=== PATIENT | female | born 1980 | race African-American/Black ===

== ENCOUNTER 2023-03-17 16:27 | Inpatient (IN) | payer MEDICARE, MEDICAID, SELFPAY ==
--- NOTE | ~2023-03-17 | CT_ITS ---
EXAMINATION: CT head/brain wo IV con INDICATION INFORMATION: Reason for Exam altered mental status COMPARISON: None TECHNIQUE: Contiguous axial imaging was performed from the skull base to vertex without intravenous contrast. Sagittal and coronal reformatted images were obtained. This CT examination was performed using dose optimization techniques as appropriate, variously including the following: * Automated exposure control * Adjustment of mA and/or kV according to patient size (this includes techniques or standardized protocols for targeted exams where dose is matched to indication/reason for exam; i.e. extremities or head) Use of iterative reconstruction technique DLP: 527.79 mGy-cm FINDINGS: No acute osseous abnormality. Mild right frontal scalp soft tissue swelling. The mastoid air cells and visualized portions of the paranasal sinuses are well aerated. There is no evidence of acute intracranial hemorrhage or territorial infarction. No abnormal mass effect or midline shift is seen. Holcomb to white matter differentiation is well preserved. No extra-axial fluid collections are identified. No hydrocephalus. No significant volume loss. There is no abnormal attenuation within the brain parenchyma. CT/CT head/brain wo IV con IMPRESSION: No acute intracranial abnormality including hemorrhage, mass effect, hydrocephalus, or acute territorial edematous infarction.
[2023-03-17 16:52] VITALS: BP 134/80; PULSE 100; RESP 16; TEMP 36.8; O2SAT 94
[2023-03-17 17:56] VITALS: BMI 45.8
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
[2023-03-17] MEDS: Nicotine Polacrilex Lozenge 2 MG LOZENGE BUCCAL (21:41)
[2023-03-18 07:14] LABS: Alanine Aminotransferase 75 U/L (0-31); Alkaline Phosphatase 81 U/L (39-117); Anion Gap 11 (12-20); Aspartate Amino Transferase 87 U/L (5-31); Bilirubin Total 0.6 mg/dL (0.0-1.0); Blood Urea Nitrogen 8 mg/dL (9-16); Calcium 9.2 mg/dL (8.4-10.2); Carbon Dioxide 27 mmol/L (22-29); Chloride 102 mmol/L (96-108); Cholesterol 152 mg/dL; Creatinine Clr Calc Pharmacy 136.6; Estimated Glomerular Filt Rate > 60; Glucose Fasting 87 mg/dL (60-99); HDL Cholesterol 50 mg/dL; LDL Cholesterol Calculated 95 mg/dl; Potassium 4.2 mmol/L (3.3-5.1); Sodium 136 mmol/L (135-145); Total Protein 6.2 g/dL (6.5-8.0); Triglycerides 35 mg/dL
[2023-03-18 08:07] VITALS: BP 112/70; PULSE 115; RESP 18; TEMP 36.8; O2SAT 100
[2023-03-18] MEDS: Nicotine 7 MG PATCH.TD24 TRANSDERMA (09:00)
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
[2023-03-18 15:29] LABS: Appearance Urine Cloudy; Color Urine Yellow; Glucose Urine UA Negative (Negative); Leukocyte Esterase Urine Moderate (2+) (Negative); Nitrite Urine Positive (Negative); PH 6.5 (5.0-9.0); UMIC TRIGGER UA YES; Urine Blood Large (3+) (Negative); Urine Ketones Trace mg/dL (Negative); Urine Protein 100 (2+) mg/dL (Neg-Trace)
[2023-03-18 15:34] LABS: Bacteria Urine 2+ (None Seen); Hyaline Casts Urine 0-2 /LPF (0-2); RBC Urine >20 /HPF (0-2); WBC Urine >50 /HPF (0-5)
[2023-03-18 15:59] LABS: Amphetamine Screen Urine Not Detected (Not Detect); Barbiturates, Urine Not Detected (Not Detect); Benzodiazepines Screen Urine Not Detected (Not Detect); Cannabinoid Screen Urine Not Detected (Not Detect); Cocaine Screen Urine Not Detected (Not Detect); Fentanyl, urine Not Detected (Not Detect); Opiate Screen Urine Not Detected (Not Detect); Phencyclidine Screen Urine Not Detected (Not Detect)
[2023-03-18] MEDS: traZODone HCL 50 MG TABLET PO (21:09)
[2023-03-18 21:18] VITALS: BP 106/72; PULSE 103; TEMP 36.8; O2SAT 100
[2023-03-19 08:23] VITALS: BP 112/67; PULSE 93; RESP 18; TEMP 36.3; O2SAT 100
[2023-03-19] MEDS: Nicotine 7 MG PATCH.TD24 TRANSDERMA (08:24)
[2023-03-19] MEDS: Multivitamin TABLET 1 TAB PO (08:24)
--- NOTE | 2023-03-19 10:51 | P.PNPSI_ITS ---
Subjective Subjective Date of Service: 03/19/23 Reason For Visit: F33.33 F41.1 F23 Subjective Notes: Conditional Voluntary Interim History: The nursing staff reported the patient had been compliant with treatment, she had all her meals and slept fairly well at night needed p.r.n. for sleep. On interview I explained her that her CT scan came back normal, her UA probably she would have a UTI and a culture is pending. She still on antibiotics. We discussed the possibility that her brief psychotic break was due to an infection but we will follow. Mental Status Exam Mental Status Exam Patient Appearance: Well Grooomed and Appropriate Patient Orientation: Person and Situation Level of Consciousness: Awake and Appropriate Patient Behavior: Guarded and Passive Mood Description: Calm Affect Description: Constricted Patient Cognition Impaired: Yes Ability to Follow Directions: Good Speech Pattern: Clear Hallucinations: None Delusions: Not Present Thought Process: Distracted and Evasive Thought Content: positive for [place] and positive for Circumstantial Judgement: Fair Diagnostics Vital Signs (24Hr): Vital Signs - 24 hr 03/18/23 21:18 03/19/23 08:23 Temperature 98.3 F 97.3 F Pulse Rate 103 H 93 Respiratory Rate 18 Blood Pressure 106/72 112/67 Pulse Oximetry 100 100 Oxygen Delivery Method Room Air Room Air BMI result Body Mass Index 45.8 Labs 03/18/23 06:37 Labs: Laboratory Results - last 48 hr 03/18/23 03/18/23 03/18/23 06:37 15:08 15:09 Sodium 136 Potassium 4.2 Chloride 102 Carbon Dioxide 27 Anion Gap 11 L BUN 8 L Creatinine 0.72 Estim Creat Clear Calc 136.6 Estimated GFR > 60 Fasting Glucose 87 Calcium 9.2 Total Bilirubin 0.6 AST 87 H ALT 75 H Alkaline Phosphatase 81 Total Protein 6.2 L Albumin 4.0 Triglycerides 35 Cholesterol 152 LDL Cholesterol, Calc 95 HDL Cholesterol 50 Urine Color Yellow Urine Appearance Cloudy Urine pH 6.5 Ur Specific Bee 1.020 Urine Protein 100 (2+) H Urine Glucose (UA) Negative Urine Ketones Trace Urine Blood Large (3+) H Urine Nitrite Positive H Ur Leukocyte Esterase Moderate (2+) H Urine RBC >20 H Urine WBC >50 H Ur Squamous Epith Cells 3-5 Urine Bacteria 2+ Hyaline Casts 0-2 Urine Opiates Screen Not Detected Urine Fentanyl Screen Not Detected Ur Barbiturates Screen Not Detected Ur Phencyclidine Scrn Not Detected Ur Amphetamines Screen Not Detected U Benzodiazepines Scrn Not Detected Urine Cocaine Screen Not Detected U Marijuana (THC) Screen Not Detected Imaging Radiology Impressions: ITS Impressions Head CT 03/18/23 14:04 IMPRESSION: No acute intracranial abnormality including hemorrhage, mass effect, hydrocephalus, or acute territorial edematous infarction. Medications Medications Current Medications Acetaminophen (Acetaminophen 325 Mg Tablet) 650 mg PO Q6H PRN PRN Reason: Headache/Pain Mild Scale (1-3) Al Hydroxide/Mg Hydroxide (Magnesium Hydrox/Alum Hydrox 30 Ml Oral.Susp) 30 ml PO Q6H PRN PRN Reason: Heartburn/Nausea Aripiprazole (Aripiprazole 2 Mg Tablet) 2 mg PO DAILY [facility] Last Admin: 03/19/23 08:30 Dose: Not Given Cefuroxime Axetil (Cefuroxime Axetil 250 Mg Tablet) 250 mg PO Q12H [facility] Last Admin: 03/19/23 08:24 Dose: 250 mg Escitalopram Oxalate (Escitalopram Oxalate 10 Mg Tablet) 10 mg PO DAILY [facility] Last Admin: 03/19/23 08:30 Dose: Not Given Hydroxyzine HCl (Hydroxyzine Hcl 25 Mg Tablet) 25 mg PO Q6H PRN PRN Reason: Anxiety Loratadine (Loratadine 10 Mg Tablet) 10 mg PO DAILY [facility] Last Admin: 03/19/23 08:30 Dose: Not Given Magnesium Hydroxide (Milk Of Magnesia 30 Ml Oral.Susp) 30 ml PO DAILY PRN PRN Reason: Constipation Multivitamins/Vitamin C (Multivitamin Tablet) 1 tab PO DAILY [facility] Last Admin: 03/19/23 08:24 Dose: 1 tab Nicotine (Nicotine 7 Mg Patch.Td24) 7 mg TRANSDERMA DAILY [facility] Last Admin: 03/19/23 08:24 Dose: 7 mg Nicotine Polacrilex (Nicotine Polacrilex Lozenge 2 Mg Lozenge) 2 mg BUCCAL Q2H PRN PRN Reason: smoking cravings Last Admin: 03/17/23 21:41 Dose: 2 mg Trazodone HCl (Trazodone Hcl 50 Mg Tablet) 50 mg PO BEDTIME MRX1 PRN PRN Reason: Insomnia Last Admin: 03/18/23 21:09 Dose: 50 mg Trazodone HCl (Trazodone Hcl 50 Mg Tablet) 50 mg PO BEDTIME PRN PRN Reason: insomnia Allergies Allergies Allergy/AdvReac Type Severity Reaction Status Date / Time No Known Allergies Allergy Verified 03/17/23 17:31 Assessment & Plan Assessment & Plan (1) Mood disorder: Status: Acute Code(s): F39 - Unspecified mood [affective] disorder Plan The patient is an adult female with a prior history of depression who was admitted into the hospital for psychotic episode that resolved spontaneously after 14-16 hours. Currently the patient adamantly sandy es psychotic symptoms, sell her reamed behavior, hallucinations or delusions. Plan 1. Gather collateral information. 2. CT scan head without contrast. NO new findings 3. Regular blood work with TSH basic metabolic panel liver function test ammonia level. results wnl. 4. Urinalysis and U tox. Positive to UTI 5. Continue with same medications and antibiotics. Reason for continued inpatient stay Substantial Risk for: inability to function, rapid decompensation and med/psych decompensation Time Spent With Patient Time: Total time managing care of this patient today __20__ minutes.
[2023-03-19] MEDS: traZODone HCL 50 MG TABLET PO (21:03)
[2023-03-19 21:06] VITALS: BP 117/61; PULSE 78; RESP 18; TEMP 36.7; O2SAT 100
[2023-03-20 08:00] VITALS: BP 122/76; PULSE 91; TEMP 36.4; O2SAT 97
[2023-03-20] MEDS: Multivitamin TABLET 1 TAB PO (08:54)
[2023-03-20] MEDS: Loratadine 10 MG TABLET PO (08:55)
[2023-03-20] MEDS: Nicotine 7 MG PATCH.TD24 TRANSDERMA (09:32)
--- NOTE | 2023-03-20 16:20 | P.PNPSI_ITS ---
Subjective Subjective Date of Service: 03/20/23 Reason For Visit: F33.33 F41.1 F23 Interim History: calm, cooperative. feeling better, would like to discharge as soon as possible. denies any safety concerns today. agree to DC tomorrow at 11. will plan to restart her home meds, which she is currently Rx'ed. the fact that her proper home meds are currently RX'ed to her here was discussed with her, and she expressed her intention to take them. per staff, 3-day up 03/22. brighter. UTI, getting antibx. refusing antidepressant and antipsychotic, wants to discuss with MD. refusing all meds aside from ativan. slept post MN. Mental Status Exam Mental Status Exam Narrative: adequately dressed and groomed. cooperative. slight PMR, perhaps. speech nml rate, amount. decr loudness. nml latency, flattened tone. thoughts linear and logical. affect constricted, hypo-intense, non-labile. mood i've been OK the last few days. denies SI/HI/AVH. Diagnostics Vital Signs (24Hr): Vital Signs - 24 hr 03/19/23 21:06 03/20/23 08:00 Temperature 98.1 F 97.6 F Pulse Rate 78 91 Respiratory Rate 18 Blood Pressure 117/61 122/76 Pulse Oximetry 100 97 Oxygen Delivery Method Room Air Room Air BMI result Body Mass Index 45.8 Labs 03/18/23 06:37 Imaging Radiology Impressions: ITS Impressions Head CT 03/18/23 14:04 IMPRESSION: No acute intracranial abnormality including hemorrhage, mass effect, hydrocephalus, or acute territorial edematous infarction. Medications Medications Current Medications Acetaminophen (Acetaminophen 325 Mg Tablet) 650 mg PO Q6H PRN PRN Reason: Headache/Pain Mild Scale (1-3) Al Hydroxide/Mg Hydroxide (Magnesium Hydrox/Alum Hydrox 30 Ml Oral.Susp) 30 ml PO Q6H PRN PRN Reason: Heartburn/Nausea Aripiprazole (Aripiprazole 2 Mg Tablet) 2 mg PO DAILY [facility] Last Admin: 03/20/23 09:51 Dose: Not Given Cefuroxime Axetil (Cefuroxime Axetil 250 Mg Tablet) 250 mg PO Q12H [facility] Stop: 03/23/23 20:59 Last Admin: 03/20/23 08:55 Dose: 250 mg Escitalopram Oxalate (Escitalopram Oxalate 10 Mg Tablet) 10 mg PO DAILY [facility] Last Admin: 03/20/23 08:56 Dose: Not Given Hydroxyzine HCl (Hydroxyzine Hcl 25 Mg Tablet) 25 mg PO Q6H PRN PRN Reason: Anxiety Loratadine (Loratadine 10 Mg Tablet) 10 mg PO DAILY [facility] Last Admin: 03/20/23 08:55 Dose: 10 mg Magnesium Hydroxide (Milk Of Magnesia 30 Ml Oral.Susp) 30 ml PO DAILY PRN PRN Reason: Constipation Multivitamins/Vitamin C (Multivitamin Tablet) 1 tab PO DAILY [facility] Last Admin: 03/20/23 08:54 Dose: 1 tab Nicotine (Nicotine 7 Mg Patch.Td24) 7 mg TRANSDERMA DAILY [facility] Last Admin: 03/20/23 09:32 Dose: 7 mg Nicotine Polacrilex (Nicotine Polacrilex Lozenge 2 Mg Lozenge) 2 mg BUCCAL Q2H PRN PRN Reason: smoking cravings Last Admin: 03/17/23 21:41 Dose: 2 mg Trazodone HCl (Trazodone Hcl 50 Mg Tablet) 50 mg PO BEDTIME MRX1 PRN PRN Reason: Insomnia Last Admin: 03/19/23 21:03 Dose: 50 mg Trazodone HCl (Trazodone Hcl 50 Mg Tablet) 50 mg PO BEDTIME PRN PRN Reason: insomnia Allergies Allergies Allergy/AdvReac Type Severity Reaction Status Date / Time No Known Allergies Allergy Verified 03/17/23 17:31 Assessment & Plan Assessment & Plan (1) Mood disorder: Status: Acute Code(s): F39 - Unspecified mood [affective] disorder Plan The patient is an adult female with a prior history of depression who was admitted into the hospital for psychotic episode that resolved spontaneously after 14-16 hours. Currently the patient adamantly denies psychotic symptoms, sell her reamed behavior, hallucinations or delusions. Plan 1. Gather collateral information. 2. CT scan head without contrast. NO new findings 3. Regular blood work with TSH basic metabolic panel liver function test ammonia level. results wnl. 4. Urinalysis and U tox. Positive to UTI 5. Continue with same medications and antibiotics. 03/20: continue current mgmt. plan to discharge tomorrow per pt preference. psychotic Sx resolved. Reason for continued inpatient stay Substantial Risk for: rapid decompensation Time Spent With Patient Time: Total time managing care of this patient today __25__ minutes.
[2023-03-20 18:00] VITALS: BP 108/74; PULSE 90; TEMP 36.6; O2SAT 100
[2023-03-20] MEDS: traZODone HCL 50 MG TABLET PO (21:01)
[2023-03-21 08:00] VITALS: BP 104/65; PULSE 78; RESP 18; TEMP 36.6; O2SAT 100
[2023-03-21] MEDS: Multivitamin TABLET 1 TAB PO (08:52)
[2023-03-21] MEDS: Loratadine 10 MG TABLET PO (08:53)
[2023-03-21] MEDS: Escitalopram Oxalate 10 MG TABLET PO (08:53)
[2023-03-21] MEDS: ARIPiprazole 2 MG TABLET PO (08:53)
[2023-03-21] MEDS: Nicotine 7 MG PATCH.TD24 TRANSDERMA (08:54)
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
--- NOTE | 2023-03-21 10:52 | PC.NURSE ---
1035 pt is ready and aware of discharge to home. She denies SI/HI/AH/VH .Instructions meds and appointments reviewed with Chirag. She verbalized understanding.
== END 2023-03-21 10:35 | disposition home or self-care (01) | DRG 885 ==
PROVIDERS: Psychiatry & Neurology Psychiatry; Admitting Provider Psychiatry & Neurology Psychiatry; Visit Provider Psychiatry & Neurology Psychiatry
DX: F29 Unspecified psychosis not due to a substance or known physiological condition (principal); J30.2 Other seasonal allergic rhinitis; F17.210 Nicotine dependence, cigarettes, uncomplicated; Z71.6 Tobacco abuse counseling; Z79.899 Other long term (current) drug therapy
CPT/HCPCS: 36415; 70450; 80053; 80061; 80307; 81001; 87086

== ENCOUNTER 2023-07-06 19:03 | Inpatient (IN) | payer MEDICARE, MEDICAID, SELFPAY ==
--- NOTE | ~2023-07-06 | CT_ITS ---
EXAMINATION: CT HEAD WITHOUT CONTRAST CLINICAL INFORMATION: Fall COMPARISON: Previous head CT February 2023 TECHNIQUE: Contiguous axial imaging was performed from the skull base to vertex without intravenous administration of contrast. This CT examination was performed using dose optimization techniques as appropriate, variously including the following: *Automated exposure control *Adjustment of mA and/or kV according to patient size (this includes techniques or standardized protocols for targeted exams where dose is matched to indication/reason for exam; i.e. extremities or head) *Use of iterative reconstruction technique DLP: 922 mGy-cm FINDINGS: There is no evidence of an axial collection. There is no evidence of intra-axial extra-axial hemorrhage. The ventricles and extra-axial CSF spaces are appropriate. Holcomb-white matter differentiation is normal. No mass, mass effect or infarct. No skull fracture. Visualized paranasal sinuses, mastoid air cells and middle ears are clear. CT/CT head/brain wo IV con IMPRESSION: Unremarkable exam.
[2023-07-06 19:30] VITALS: BP 136/87; PULSE 92; RESP 16; TEMP 36.4; O2SAT 96
[2023-07-06 20:17] VITALS: BMI 22.9
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
--- NOTE | 2023-07-07 00:35 | PC.NURSE ---
Patient was noted to have E.coli UTI and was started on an antibiotic at [facility] ED. Orders need to be written for additional antibiotic to continue treatment.
[2023-07-07 08:51] LABS: Estimated Average Glucose 97 mg/dL
[2023-07-07 08:54] LABS: Alanine Aminotransferase 20 U/L (0-31); Albumin Level 5.1 g/dL (3.5-5.0); Alkaline Phosphatase 98 U/L (39-117); Anion Gap 18 (12-20); Aspartate Amino Transferase 56 U/L (5-31); Bilirubin Total 1.1 mg/dL (0.0-1.0); Blood Urea Nitrogen 9 mg/dL (9-16); Calcium 10.4 mg/dL (8.4-10.2); Carbon Dioxide 22 mmol/L (22-29); Chloride 103 mmol/L (96-108); Cholesterol 201 mg/dL; Creatinine Clr Calc Pharmacy 63.1; Estimated Glomerular Filt Rate 53; Glucose Fasting 98 mg/dL (60-99); HDL Cholesterol 73 mg/dL; LDL Cholesterol Calculated 119 mg/dl; Potassium 3.5 mmol/L (3.3-5.1); Sodium 139 mmol/L (135-145); Total Protein 8.6 g/dL (6.5-8.0); Triglycerides 47 mg/dL
[2023-07-07 09:09] LABS: Thyroid Stimulating Hormone 2.01 uIU/mL (0.32-4.0)
[2023-07-07 09:19] LABS: Folate 8.5 ng/mL (> or = 4.0); Vitamin B12 786 pg/mL (200-900)
[2023-07-07 09:35] VITALS: BP 123/77; PULSE 112; RESP 18; TEMP 36.5; O2SAT 98
[2023-07-07] MEDS: hydrOXYzine HCL 25 MG TABLET PO (09:44)
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
--- NOTE | 2023-07-07 12:18 | P.HPPS_ITS ---
HPI Date of Service: 07/07/23 Chief Complaint: Psychotic Sources of Information: patient interviewed, chart reviewed and crisis/core team assessment reviewed Additional Sources of Information: Father, Adalberto. Pt is a heavy binge drinker, [employer]. HPI Subjective Notes: [place] Warning and Conditional Voluntary Healthcare Proxy: No Guardianship: No Medical Problems Affecting Mental Status: No Narrative: 42 yo female, hx of bipolar depression, anxiety, alcohol use- in withdrawal on arrival, presents to [facility] ER for reported hallucinations and feeling unsafe at home. Pt asked to be taken from her home to her friends home. She reportedly heard voices in her driveway of people attempting to harm her. [facility] reports a similiar presentation January 2023. [facility] found a mild anemia, alcohol withdrawal requiring Ativan, AST elevation, UTI (Macrobid started 100 mg bid x 5 days), visual hallucinations. Given Olanzapine. Pt developed visual and olfactory hallucinations in the ER. Today, pt appears to respond to internal stimuli. She is moving her hands as if she is spinning yarn. She is a vague historian. She affirms the above, stating she did not want to come to hospital. ?Hallucinosis Past Psychiatric History: The patient had outpatient services in the past never admitted into the hospital before IP: None known. Hx of this presentation of sx earlier this year at [facility] OP: Not known Meds: Abilify, Lexapro, Trazodone Medical Evaluation Reviewed: Yes [facility] Medical History (Updated 07/07/23 @ 16:56 by Dianne Phelan, EXTERMINATOR [employer]) Alcohol use disorder Bipolar disorder, now depressed Routine history and physical examination of adult Unspecified psychosis Family History: Denies Social History: The patient is a social security benefits of food stamps, she lives with her 19-year-old son and son's girlfriend, she has good social suppo rt. She reported that she ran from high school and she attended college she has a degree in criminal justice. Substance History: Tox negative Alcohol hx Trauma History: Affirms at home Diagnostics Vital Signs (24Hr): Vital Signs - 24 hr 07/06/23 19:30 07/07/23 09:35 Temperature 97.5 F 97.7 F Pulse Rate 92 112 H Respiratory Rate 16 18 Blood Pressure 136/87 123/77 Pulse Oximetry 96 98 Oxygen Delivery Method Room Air Room Air BMI result Body Mass Index 22.9 Labs 07/07/23 08:00 Labs: Laboratory Results - last 48 hr 07/07/23 07/07/23 07/07/23 08:00 08:00 08:00 Sodium 139 Potassium 3.5 Chloride 103 Carbon Dioxide 22 Anion Gap 18 BUN 9 Creatinine 1.14 Estim Creat Clear Calc 63.1 Estimated GFR 53 Fasting Glucose 98 Estimat Average Glucose 97 Hemoglobin A1c % 5.0 Calcium 10.4 H D Total Bilirubin 1.1 H AST 56 H ALT 20 Alkaline Phosphatase 98 Total Protein 8.6 H Albumin 5.1 H Triglycerides 47 Cholesterol 201 LDL Cholesterol, Calc 119 HDL Cholesterol 73 Vitamin B12 786 Folate 8.5 TSH 2.01 Urine Culture E Coli >100,000 CFU/ml Tox negative RBC 3.7, HGB 9.6, HCT 28.8, MCV 77.4, MCH 25.8 AST 44 EKG EKG Comment: Sinus Tachycardia, CHRIS QTc 480 Meds/Allergies Meds Home Medications Medication Instructions Recorded Confirmed Type aripiprazole 2 mg tablet 2 mg PO DAILY 03/18/23 07/06/23 History escitalopram oxalate 10 mg tablet 10 mg PO DAILY 03/18/23 07/06/23 History loratadine 10 mg tablet 10 mg PO DAILY 03/18/23 07/06/23 History multivitamin 1 tab PO DAILY 03/18/23 07/06/23 History trazodone 50 mg tablet 50 mg PO BEDTIME PRN insomnia 03/18/23 07/06/23 History nitrofurantoin macrocrystal 100 mg PO BID UTI 07/06/23 07/06/23 History Allergies Allergies Allergy/AdvReac Type Severity Reaction Status Date / Time No Known Allergies Allergy Verified 03/17/23 17:31 Mental Status Exam Mental Status Exam Patient Appearance: Fatigued Patient Orientation: Person and Place Level of Consciousness: Awake, Restless and Alert Patient Behavior: Guarded, Talkative, Passive, Suspicious, Restless, Wandering, Anxious, Fearful, Resistive to Care, Avoidant, Fatigued, Distractible, Confused, Isolative, Pacing and Poor Eye Contact Mood Description: Suspicious, Withdrawn, Constricted, Fearful, Anxious, Nervous and Apprehensive Affect Description: Anxious and Apprehensive Patient Cognition Impaired: Yes Ability to Follow Directions: Fair Speech Pattern: Perseverating, Impoverished, Monotone, Spontaneous Speech, Soft- Spoken, Mumbled, Delayed and Long Pauses Memory Description: Remote Impaired Hallucinations: None, Auditory, Visual (reported), Olfactory (reported) and Tactile (reported) Delusions: Paranoid Ideation and Present Perceptual Disturbances: Depersonalization, Derealization and Hallucinations Thought Process: Illogical, Rumination, Evasive and Confusion Thought Content: positive for Circumstantial, positive for Perseveration, positive for Poverty of Content, positive for Preoccupation and positive for Disorganized Depressive Symptoms: Increased Anxiety, Diff. Making Decisions, Loss of Int. in Activity, Unhappiness, Increased Fatigue, Loss of Energy and Difficulty Concentrating Abnormal Motor Activity Signs and Symptoms: Restlessness Judgement: Poor Assessment & Plan Assessment & Plan (1) Bipolar disorder, now depressed: Status: Acute Code(s): F31.30 - Bipolar disorder, current episode depressed, mild or moderate severity, unspecified (2) Unspecified psychosis: Status: Acute Code(s): F29 - Unspecified psychosis not due to a substance or known physiological condition Plan 42 yo female, transfer from [facility], UTI, ?alcohol hallucinosis, hx bipolar depression. Pt off meds, confused, experiencing perceptual alterations. Hx of binge drinking. Believes her home is unsafe and people are coming to harm her. Plan: CIWA, monitor for withdrawal Diagnostics Added Olanzapine scheduled and prn MVI, Folic Acid, Thiamine Lorazepam scheduled and prn. Pt may need a change to Librium Macrobid for UTI Close monitoring. Patient educated on: other Informed Consent: does not understand Reason for continued inpatient stay Substantial Risk for: harm to self, inability to function and med/psych decompensation Statement Statement: I have reviewed the history and physical and performed a pertinent examination on my patient. No changes have occurred unless specified. If the History and Physical was not performed prior to admission, the Hospitalist's service will be consulted for completing the admission physical. Time Spent With Patient Time: Total time managing care of this patient today ____ minutes.
--- NOTE | 2023-07-07 16:09 | HO.PSYADMNOT ---
HPI Date of Service: 07/07/23 Chief Complaint: Psychotic Sources of Information: patient interviewed, chart reviewed and crisis/core team assessment reviewed HPI Subjective Notes: [place] Warning and Conditional Voluntary Healthcare Proxy: No Guardianship: No Medical Problems Affecting Mental Status: No Narrative: 42 yo female, hx of anxiety, bipolar depression, depression presents to [facility] ER via EMS reporting hallucinations, visual, auditory. She told family she did not feel safe at home and asked to be taken to her friend's home. She felt people were in her driveway wanting to harm her. Past Psychiatric History: The patient had outpatient services in the past never admitted into the hospital before [facility] Medical History (Updated 03/29/23 @ 00:14 by Background Daemon) Routine history and physical examination of adult Family History: Denies Social History: The patient is a social security benefits of food stamps, she lives with her 19-year-old son and son's girlfriend, she has good social support. She reported that she ran from high school and she attended college she has a degree in criminal justice. Trauma History: Denies Diagnostics Vital Signs (24Hr): Vital Signs - 24 hr 07/06/23 19:30 07/07/23 09:35 Temperature 97.5 F 97.7 F Pulse Rate 92 112 H Respiratory Rate 16 18 Blood Pressure 136/87 123/77 Pulse Oximetry 96 98 Oxygen Delivery Method Room Air Room Air BMI result Body Mass Index 22.9 Labs 07/07/23 08:00 Labs: Laboratory Results - last 48 hr 07/07/23 07/07/23 07/07/23 08:00 08:00 08:00 Sodium 139 Potassium 3.5 Chloride 103 Carbon Dioxide 22 Anion Gap 18 BUN 9 Creatinine 1.14 Estim Creat Clear Calc 63.1 Estimated GFR 53 Fasting Glucose 98 Estimat Average Glucose 97 Hemoglobin A1c % 5.0 Calcium 10.4 H D Total Bilirubin 1.1 H AST 56 H ALT 20 Alkaline Phosphatase 98 Total Protein 8.6 H Albumin 5.1 H Triglycerides 47 Cholesterol 201 LDL Cholesterol, Calc 119 HDL Cholesterol 73 Vitamin B12 786 Folate 8.5 TSH 2.01 Meds/Allergies Meds Home Medications Medication Instructions Recorded Confirmed Type aripiprazole 2 mg tablet 2 mg PO DAILY 03/18/23 07/06/23 History escitalopram oxalate 10 mg tablet 10 mg PO DAILY 03/18/23 07/06/23 History loratadine 10 mg tablet 10 mg PO DAILY 03/18/23 07/06/23 History multivitamin 1 tab PO DAILY 03/18/23 07/06/23 History trazodone 50 mg tablet 50 mg PO BEDTIME PRN insomnia 03/18/23 07/06/23 History nitrofurantoin macrocrystal 100 mg PO BID UTI 07/06/23 07/06/23 History Allergies Allergies Allergy/AdvReac Type Severity Reaction Status Date / Time No Known Allergies Allergy Verified 03/17/23 17:31 Assessment & Plan Statement Statement: I have reviewed the history and physical and performed a pertinent examination on my patient. No changes have occurred unless specified. If the History and Physical was not performed prior to admission, the Hospitalist's service will be consulted for completing the admission physical. Time Spent With Patient Time: Total time managing care of this patient today ____ minutes.
--- NOTE | 2023-07-07 16:34 | PC.RT ---
Attempted to do smoking cessation with pt, advised by [facility] staff that pt is confused and not to disturb pt at this time
--- NOTE | 2023-07-07 18:37 | PC.NURSE ---
Chirag was standing at the end of the hallway near the window repeatedly yelling MA! MA! MA! . Staff offered her a quiet space and prn zyprexa 5mg and ativan 0.5mg, but she declined. She continued to yell and stated I need a shot of liquor and a cigarette! . Security was called for support and staff was able to redirect her to walk back to her room. While walking in front of the main nurse's station, Chirag turned around suddenly and began charging her body at a home security alarm installer. She was placed in a physical hold from 1744 to 1745 and escorted to 505. When physical hold was released, Chirag layed down on the bed in 505. She was able to deescalate herself and is currently visible in the milieu. Provider telephone clerk Latasha and nursing supervisory investigative specialist were notified.
[2023-07-07 20:00] VITALS: BP 130/78; PULSE 100; RESP 18; TEMP 36.6; O2SAT 98
[2023-07-07] MEDS: LORazepam 0.5 MG TABLET PO (20:29)
[2023-07-07] MEDS: OLANZapine 10 MG TABLET PO (20:30)
--- NOTE | 2023-07-08 06:16 | PC.NURSE ---
JOSEP WAS OBSERVED BY STAFF AT 2250 TO LOOSE BALANCE AND FALL BACKWARDS STRIKING THE BACK OF HER HEAD, AREA ASSESSED WITH NO APPARENT INJURY AT THE TIME, NO REPORTED LOSS OF CONSCIOUSNESS REPORTED, NEURO CHECKS COMPLETED, BRUNO, ALERT, AWAKE, UNABLE TO FOLLOW COMMAND TO ASSESS GRASP, NO LIMB DEFORMITY, NO REPORT OF PAIN. DR. PACHECO NOTIFIED, ORDER PLACED FOR ROUTINE HEAD CT. JOSEP HAS BEEN UP THE ENTIRE SHIFT, DECLINED TO TAKE PRESCRIBED ATIVAN WITH MULTIPLE ATTEMPTS. SHE CONTINUES ON CLOSE OBSERVATION FOR SAFETY.
[2023-07-08] MEDS: Nitrofurantoin Monohyd/M-Cryst 100 MG CAPSULE PO ×2 (09:11→22:18)
[2023-07-08] MEDS: Loratadine 10 MG TABLET PO (09:11)
[2023-07-08] MEDS: LORazepam 0.5 MG TABLET PO (09:11)
[2023-07-08] MEDS: Escitalopram Oxalate 10 MG TABLET PO (09:11)
[2023-07-08] MEDS: Multivitamin TABLET 1 TAB PO (09:11)
[2023-07-08 09:12] LABS: Iron 24 mcg/dL (30-160); Percent Iron Saturation 7 % (15-50); Total Iron Binding Capacity 357 mcg/dL (228-428); Unsaturated Iron Binding 333 ug/dL
[2023-07-08] MEDS: Nicotine 14 MG PATCH.TD24 TRANSDERMA (09:17)
[2023-07-08] MEDS: OLANZapine 5 MG TABLET PO ×2 (09:17→12:08)
[2023-07-08 09:20] VITALS: BP 136/97; PULSE 88; RESP 18; O2SAT 97
[2023-07-08 09:37] LABS: Ammonia 25 umol/L (13-55)
--- NOTE | 2023-07-08 11:30 | P.PNPSI_ITS ---
Subjective Subjective Date of Service: 07/08/23 Reason For Visit: Psychotic Interim History: The nursing staff reported the patient remains on one-to-one for safety. She had been shaking and reporting of anxiety most likely with throwing of alcohol. Review her CIWA protocol on and we decided to change the Ativan p.r.n.. The staff reported that last night she fell and hit her head no loss of consciousness. A CT scan was ordered for today without contrast and there was no evidence of bleeding or any new finding. On interview the patient was internally preoccupied trying to picking belt operator objects that were on the floor he was actively having visual hallucinations. Grossly disorganized. Mental Status Exam Mental Status Exam Patient Appearance: Appropriate Patient Orientation: Person and Situation Level of Consciousness: Awake and Appropriate Patient Behavior: Guarded and Passive Mood Description: Withdrawn Affect Description: Constricted Patient Cognition Impaired: No Ability to Follow Directions: Fair Speech Pattern: Clear Hallucinations: None Delusions: Not Present Thought Process: Distracted and Evasive Thought Content: positive for [place] Judgement: Poor Diagnostics Vital Signs (24Hr): Vital Signs - 24 hr 07/07/23 20:00 07/08/23 09:20 Temperature 97.8 F Pulse Rate 100 88 Respiratory Rate 18 18 Blood Pressure 130/78 136/97 H Pulse Oximetry 98 97 Oxygen Delivery Method Room Air Room Air BMI result Body Mass Index 22.9 Labs 07/07/23 08:00 Labs: Laboratory Results - last 48 hr 07/07/23 07/07/23 07/07/23 08:00 08:00 08:00 Sodium 139 Potassium 3.5 Chloride 103 Carbon Dioxide 22 Anion Gap 18 BUN 9 Creatinine 1.14 Estim Creat Clear Calc 63.1 Estimated GFR 53 Fasting Glucose 98 Estimat Average Glucose 97 Hemoglobin A1c % 5.0 Calcium 10.4 H D Iron TIBC % Saturation Unsat Iron Binding Total Bilirubin 1.1 H AST 56 H ALT 20 Alkaline Phosphatase 98 Ammonia Total Protein 8.6 H Albumin 5.1 H Triglycerides 47 Cholesterol 201 LDL Cholesterol, Calc 119 HDL Cholesterol 73 Vitamin B12 786 Folate 8.5 TSH 2.01 07/08/23 07/08/23 08:05 Unknown Sodium Potassium Chloride Carbon Dioxide Anion Gap BUN Creatinine Estim Creat Clear Calc Estimated GFR Fasting Glucose Estimat Average Glucose Hemoglobin A1c % Calcium Iron 24 L TIBC 357 % Saturation 7 L Unsat Iron Binding 333 Total Bilirubin AST ALT Alkaline Phosphatase Ammonia 25 Total Protein Albumin Triglycerides Cholesterol LDL Cholesterol, Calc HDL Cholesterol Vitamin B12 Folate TSH Medications Medications Current Medications Acetaminophen (Acetaminophen 325 Mg Tablet) 650 mg PO Q6H PRN PRN Reason: Headache/Pain Mild Scale (1-3) Al Hydroxide/Mg Hydroxide (Magnesium Hydrox/Alum Hydrox 30 Ml Oral.Susp) 30 ml PO Q6H PRN PRN Reason: Heartburn/Nausea Escitalopram Oxalate (Escitalopram Oxalate 10 Mg Tablet) 10 mg PO DAILY [facility] Last Admin: 07/08/23 09:11 Dose: 10 mg Hydroxyzine HCl (Hydroxyzine Hcl 25 Mg Tablet) 25 mg PO Q6H PRN PRN Reason: Anxiety Last Admin: 07/07/23 09:44 Dose: 25 mg Loratadine (Loratadine 10 Mg Tablet) 10 mg PO DAILY [facility] Last Admin: 07/08/23 09:11 Dose: 10 mg Lorazepam (Lorazepam 1 Mg Tablet) 0 mg PO Q4H PRN; Taper PRN Reason: Alcohol Withdrawal Stop: 07/12/23 11:24 Magnesium Hydroxide (Milk Of Magnesia 30 Ml Oral.Susp) 30 ml PO DAILY PRN PRN Reason: Constipation Multivitamins/Vitamin C (Multivitamin Tablet) 1 tab PO DAILY [facility] Last Admin: 07/08/23 09:11 Dose: 1 tab Nicotine (Nicotine 14 Mg Patch.Td24) 14 mg TRANSDERMA DAILY [facility] Last Admin: 07/08/23 09:17 Dose: 14 mg Nicotine Polacrilex (Nicotine Polacrilex 2 Mg Gum) 4 mg BUCCAL Q2H PRN PRN Reason: Nicotine Cravings Nitrofurantoin Macrocrystals (Nitrofurantoin Monohyd/M-Cryst 100 Mg Capsule) 100 mg PO Q12H [facility] Stop: 07/13/23 21:00 Last Admin: 07/08/23 09:11 Dose: 100 mg Olanzapine (Olanzapine 5 Mg Tablet) 5 mg PO Q4H PRN PRN Reason: Psychosis Last Admin: 07/08/23 09:17 Dose: 5 mg Olanzapine (Olanzapine 10 Mg Tablet) 10 mg PO BEDTIME [facility] Last Admin: 07/07/23 20:30 Dose: 10 mg Trazodone HCl (Trazodone Hcl 50 Mg Tablet) 50 mg PO BEDTIME MRX1 PRN PRN Reason: Insomnia Allergies Allergies Allergy/AdvReac Type Severity Reaction Status Date / Time No Known Allergies Allergy Verified 03/17/23 17:31 Assessment & Plan Assessment & Plan (1) Routine history and physical examination of adult: Status: Acute Code(s): Z00.00 - Encounter for general adult medical examination without abnormal findings Plan Pt is a 42-year-old female with a PMH significant for?seasonal allergies, schizophrenia, and bipolar disorder who is admitted to psychiatry unit for paranoia and reporting auditory and visual hallucinations. Medical consult for admission H&P. ?Pt has no acute medical complaints at this time. Mood disorder Plan as per Psychiatry Elevated creatinine Creatinine 1.14, up from baseline Encourage p.o. hydration UTI Pt diagnosed with UTI at [facility] Given Macrobid 100mg bid x5 days, started 07/05/2023 Full Code Attending:? DVT Prophylaxis: Lovenox Plan 1. Gather collateral information. 2. We change the Rocephin taper as per [facility] protocol. 3. Start Haldol 2 mg p.o. t.i.d. to target auditory and visual hallucinations and grossly disorganized behavior. 4. Continue with regular medications Reason for continued inpatient stay Substantial Risk for: inability to function, rapid decompensation and med/psych decompensation Time Spent With Patient Time: Total time managing care of this patient today __20__ minutes.
[2023-07-08] MEDS: LORazepam 1 MG TABLET PO ×2 (12:06→22:14)
[2023-07-08 18:00] VITALS: RESP 16
[2023-07-08] MEDS: OLANZapine 7.5 MG TABLET 15 MG PO (22:14)
[2023-07-08] MEDS: Nicotine Polacrilex 2 MG GUM 4 MG BUCCAL (22:21)
[2023-07-09] MEDS: Nicotine 14 MG PATCH.TD24 TRANSDERMA (08:55)
[2023-07-09] MEDS: LORazepam 1 MG TABLET PO ×2 (08:56→14:14)
[2023-07-09] MEDS: Escitalopram Oxalate 10 MG TABLET PO (08:56)
[2023-07-09] MEDS: Multivitamin TABLET 1 TAB PO (08:56)
[2023-07-09] MEDS: Nitrofurantoin Monohyd/M-Cryst 100 MG CAPSULE PO ×2 (08:56→18:10)
[2023-07-09] MEDS: Loratadine 10 MG TABLET PO (08:56)
[2023-07-09 09:00] VITALS: BP 119/85; PULSE 68; RESP 18; TEMP 36.2; O2SAT 99
--- NOTE | 2023-07-09 11:57 | P.PNPSI_ITS ---
Subjective Subjective Date of Service: 07/09/23 Reason For Visit: Psychotic Interim History: As per the nursing notes, the patient scored on the CIWA 13 today in the morning last night was 0 and the previous recording was 14. A change her trucks. Today in the morning, the patient was sleepy, sedated in the morning. Yesterday she was responding to internal stimuli of with visual hallucinations. Yesterday I increased Zyprexa to 15 mg p.o. q.h.s. to target psychosis and I encouraged the nursing staff to give her the Zyprexa whenever she was responding to internal stimuli. Mental Status Exam Mental Status Exam Patient Appearance: Appropriate Patient Orientation: Person Level of Consciousness: Lethargic Patient Behavior: Passive Mood Description: Withdrawn Affect Description: Blunted Ability to Follow Directions: Fair Speech Pattern: No Speech Hallucinations: None Delusions: Not Present Thought Process: Incoherent and Distracted Thought Content: positive for [place] and positive for Poverty of Content Judgement: Poor Diagnostics Vital Signs (24Hr): Vital Signs - 24 hr 07/08/23 18:00 07/09/23 09:00 Temperature 97.1 F Pulse Rate 68 Respiratory Rate 16 18 Blood Pressure 119/85 Pulse Oximetry 99 Oxygen Delivery Method Room Air BMI result Body Mass Index 22.9 Labs 07/07/23 08:00 Labs: Laboratory Results - last 48 hr 07/08/23 07/08/23 08:05 Unknown Iron 24 L TIBC 357 % Saturation 7 L Unsat Iron Binding 333 Ammonia 25 Imaging Radiology Impressions: ITS Impressions Head CT 07/08/23 13:44 IMPRESSION: Unremarkable exam. Medications Medications Current Medications Acetaminophen (Acetaminophen 325 Mg Tablet) 650 mg PO Q6H PRN PRN Reason: Headache/Pain Mild Scale (1-3) Al Hydroxide/Mg Hydroxide (Magnesium Hydrox/Alum Hydrox 30 Ml Oral.Susp) 30 ml PO Q6H PRN PRN Reason: Heartburn/Nausea Escitalopram Oxalate (Escitalopram Oxalate 10 Mg Tablet) 10 mg PO DAILY [facility] Last Admin: 07/09/23 08:56 Dose: 10 mg Hydroxyzine HCl (Hydroxyzine Hcl 25 Mg Tablet) 25 mg PO Q6H PRN PRN Reason: Anxiety Last Admin: 07/07/23 09:44 Dose: 25 mg Loratadine (Loratadine 10 Mg Tablet) 10 mg PO DAILY [facility] Last Admin: 07/09/23 08:56 Dose: 10 mg Lorazepam (Lorazepam 1 Mg Tablet) 1 mg PO Q6H PRN; Taper PRN Reason: Alcohol Withdrawal Stop: 07/12/23 11:24 Last Admin: 07/09/23 08:56 Dose: 1 mg Magnesium Hydroxide (Milk Of Magnesia 30 Ml Oral.Susp) 30 ml PO DAILY PRN PRN Reason: Constipation Multivitamins/Vitamin C (Multivitamin Tablet) 1 tab PO DAILY [facility] Last Admin: 07/09/23 08:56 Dose: 1 tab Nicotine (Nicotine 14 Mg Patch.Td24) 14 mg TRANSDERMA DAILY [facility] Last Admin: 07/09/23 08:55 Dose: 14 mg Nicotine Polacrilex (Nicotine Polacrilex 2 Mg Gum) 4 mg BUCCAL Q2H PRN PRN Reason: Nicotine Cravings Last Admin: 07/08/23 22:21 Dose: 4 mg Nitrofurantoin Macrocrystals (Nitrofurantoin Monohyd/M-Cryst 100 Mg Capsule) 100 mg PO Q12H [facility] Stop: 07/13/23 21:00 Last Admin: 07/09/23 08:56 Dose: 100 mg Olanzapine (Olanzapine 5 Mg Tablet) 5 mg PO Q4H PRN PRN Reason: Psychosis Last Admin: 07/08/23 12:08 Dose: 5 mg Olanzapine (Olanzapine 7.5 Mg Tablet) 15 mg PO BEDTIME [facility] Last Admin: 07/08/23 22:14 Dose: 15 mg Trazodone HCl (Trazodone Hcl 50 Mg Tablet) 50 mg PO BEDTIME MRX1 PRN PRN Reason: Insomnia Allergies Allergies Allergy/AdvReac Type Severity Reaction Status Date / Time No Known Allergies Allergy Verified 03/17/23 17:31 Assessment & Plan Assessment & Plan (1) Routine history and physical examination of adult: Status: Acute Code(s): Z00.00 - Encounter for general adult medical examination without abnormal findings Plan Pt is a 42-year-old female with a PMH significant for?seasonal allergies, schizophrenia, and bipolar disorder who is admitted to psychiatry unit for paranoia and reporting auditory and visual hallucinations. Medical consult for admission H&P. ?Pt has no acute medical complaints at this time. Mood disorder Plan as per Psychiatry Elevated creatinine Creatinine 1.14, up from baseline Encourage p.o. hydration UTI Pt diagnosed with UTI at [facility] Given Macrobid 100mg bid x5 days, started 07/05/2023 Full Code Attending:? DVT Prophylaxis: Lovenox Plan 1. Gather collateral information. 2. We change the Ativan taper as per [facility] protocol. 3. We increased Haldol up to 15 mg p.o. q.h.s. to target psychosis. 4. Continue with regular medications Reason for continued inpatient stay Substantial Risk for: inability to function, rapid decompensation and med/psych decompensation Time Spent With Patient Time: Total time managing care of this patient today __20__ minutes.
[2023-07-09 19:30] VITALS: BP 114/72; PULSE 92; TEMP 36.8; O2SAT 100
[2023-07-09] MEDS: OLANZapine 7.5 MG TABLET 15 MG PO (20:41)
[2023-07-10 08:41] VITALS: BP 109/72; PULSE 131; RESP 16; TEMP 36.4; O2SAT 97
[2023-07-10] MEDS: Multivitamin TABLET 1 TAB PO (09:30)
[2023-07-10] MEDS: Nicotine 14 MG PATCH.TD24 TRANSDERMA (09:30)
[2023-07-10] MEDS: Escitalopram Oxalate 10 MG TABLET PO (09:30)
[2023-07-10] MEDS: Loratadine 10 MG TABLET PO (09:30)
[2023-07-10] MEDS: Nitrofurantoin Monohyd/M-Cryst 100 MG CAPSULE PO ×2 (09:30→20:03)
[2023-07-10] MEDS: Nicotine Polacrilex 2 MG GUM 4 MG BUCCAL ×2 (10:16→20:03)
--- NOTE | 2023-07-10 15:21 | P.PNPSI_ITS ---
Subjective Subjective Date of Service: 07/10/23 Reason For Visit: Psychotic Subjective Notes: Conditional Voluntary Healthcare Proxy: No Guardianship: No Medical Problems Affecting Mental Status: No Interim History: Detox continues. Lorazepam tapering. Elopement risk per team Pt is calmer today. Resting, states overall she is improved One to one changed to 5 minute checks. Sleeping when checked in on this afternoon. Appears comfortable in no acute distress and verbally affirms. Difficult process for pt. Medication Compliance: Yes Side effects from medications: No Attending Groups: No Review of Systems Acute medical concerns: No Medical Review of Systems: unchanged Mental Status Exam Mental Status Exam Patient Appearance: Fatigued Patient Orientation: Person, Place and Situation Level of Consciousness: Awake and Sedated Patient Behavior: Talkative, Cooperative and Good Eye Contact Mood Description: Withdrawn Affect Description: Withdrawn Patient Cognition Impaired: Yes Ability to Follow Directions: Fair Speech Pattern: Spontaneous Speech and Soft-Spoken Memory Description: Remote Impaired Thought Process: Confusion Thought Content: positive for Circumstantial Depressive Symptoms: Increased Fatigue and Loss of Energy Judgement: Fair Diagnostics Vital Signs (24Hr): Vital Signs - 24 hr 07/09/23 19:30 07/10/23 08:41 Temperature 98.2 F 97.5 F Pulse Rate 92 131 H Respiratory Rate 16 Blood Pressure 114/72 109/72 Pulse Oximetry 100 97 Oxygen Delivery Method Room Air Room Air BMI result Body Mass Index 22.9 Labs 07/07/23 08:00 Imaging Radiology Impressions: ITS Impressions Head CT 07/08/23 13:44 IMPRESSION: Unremarkable exam. Medications Medications Current Medications Acetaminophen (Acetaminophen 325 Mg Tablet) 650 mg PO Q6H PRN PRN Reason: Headache/Pain Mild Scale (1-3) Al Hydroxide/Mg Hydroxide (Magnesium Hydrox/Alum Hydrox 30 Ml Oral.Susp) 30 ml PO Q6H PRN PRN Reason: Heartburn/Nausea Escitalopram Oxalate (Escitalopram Oxalate 10 Mg Tablet) 10 mg PO DAILY [facility] Last Admin: 07/10/23 09:30 Dose: 10 mg Hydroxyzine HCl (Hydroxyzine Hcl 25 Mg Tablet) 25 mg PO Q6H PRN PRN Reason: Anxiety Last Admin: 07/07/23 09:44 Dose: 25 mg Loratadine (Loratadine 10 Mg Tablet) 10 mg PO DAILY [facility] Last Admin: 07/10/23 09:30 Dose: 10 mg Lorazepam (Lorazepam 1 Mg Tablet) 1 mg PO Q4H PRN PRN Reason: CIWA Lorazepam (Lorazepam 1 Mg Tablet) 2 mg PO Q4H PRN PRN Reason: CIWA Lorazepam (Lorazepam 1 Mg Tablet) 3 mg PO Q4H PRN PRN Reason: CIW Magnesium Hydroxide (Milk Of Magnesia 30 Ml Oral.Susp) 30 ml PO DAILY PRN PRN Reason: Constipation Multivitamins/Vitamin C (Multivitamin Tablet) 1 tab PO DAILY [facility] Last Admin: 07/10/23 09:30 Dose: 1 tab Nicotine (Nicotine 14 Mg Patch.Td24) 14 mg TRANSDERMA DAILY [facility] Last Admin: 07/10/23 09:30 Dose: 14 mg Nicotine Polacrilex (Nicotine Polacrilex 2 Mg Gum) 4 mg BUCCAL Q2H PRN PRN Reason: Nicotine Cravings Last Admin: 07/10/23 10:16 Dose: 4 mg Nitrofurantoin Macrocrystals (Nitrofurantoin Monohyd/M-Cryst 100 Mg Capsule) 100 mg PO Q12H [facility] Stop: 07/13/23 21:00 Last Admin: 07/10/23 09:30 Dose: 100 mg Olanzapine (Olanzapine 5 Mg Tablet) 5 mg PO Q4H PRN PRN Reason: Psychosis Last Admin: 07/08/23 12:08 Dose: 5 mg Olanzapine (Olanzapine 7.5 Mg Tablet) 15 mg PO BEDTIME [facility] Last Admin: 07/09/23 20:41 Dose: 15 mg Trazodone HCl (Trazodone Hcl 50 Mg Tablet) 50 mg PO BEDTIME MRX1 PRN PRN Reason: Insomnia Allergies Allergies Allergy/AdvReac Type Severity Reaction Status Date / Time No Known Allergies Allergy Verified 03/17/23 17:31 Assessment & Plan Assessment & Plan (1) Bipolar disorder, now depressed: Status: Acute Code(s): F31.30 - Bipolar disorder, current episode depressed, mild or moderate severity, unspecified Assessment and Plan: Continue current plan/regime. (2) Unspecified psychosis: Status: Acute Code(s): F29 - Unspecified psychosis not due to a substance or known physiological condition (3) Alcohol use disorder: Status: Acute Code(s): F10.90 - Alcohol use, unspecified, uncomplicated Assessment and Plan: Continue monitored detox Plan Pt is a 42-year-old female with a PMH significant for?seasonal allergies, schizophrenia, and bipolar disorder who is admitted to psychiatry unit for paranoia and reporting auditory and visual hallucinations. Medical consult for admission H&P. ?Pt has no acute medical complaints at this time. Mood disorder Plan as per Psychiatry Elevated creatinine Creatinine 1.14, up from baseline Encourage p.o. hydration UTI Pt diagnosed with UTI at [facility] Given Macrobid 100mg bid x5 days, started 07/05/2023 Full Code Attending:? DVT Prophylaxis: Lovenox Plan 1. Gather collateral information. 2. We change the Ativan taper as per CIWA protocol. 3. We increased Haldol up to 15 mg p.o. q.h.s. to target psychosis. 4. Continue with regular medications Patient educated on: therapeutic strategies Informed Consent: further education needed Reason for continued inpatient stay Substantial Risk for: med/psych decompensation Time Spent With Patient Time: Total time managing care of this patient today ____ minutes.
[2023-07-10 17:53] VITALS: BP 113/73; PULSE 89; TEMP 36.6; O2SAT 100
[2023-07-10] MEDS: OLANZapine 7.5 MG TABLET 15 MG PO (20:03)
[2023-07-10] MEDS: traZODone HCL 50 MG TABLET PO (20:39)
[2023-07-11] MEDS: Multivitamin TABLET 1 TAB PO (09:10)
[2023-07-11] MEDS: Nitrofurantoin Monohyd/M-Cryst 100 MG CAPSULE PO ×2 (09:10→20:02)
[2023-07-11] MEDS: Escitalopram Oxalate 10 MG TABLET PO (09:10)
[2023-07-11] MEDS: Loratadine 10 MG TABLET PO (09:10)
[2023-07-11] MEDS: Nicotine 14 MG PATCH.TD24 TRANSDERMA (09:11)
[2023-07-11 09:14] VITALS: BP 107/73; PULSE 88; RESP 18; TEMP 36.2; O2SAT 98
[2023-07-11] MEDS: hydrOXYzine HCL 25 MG TABLET PO ×2 (10:00→21:08)
--- NOTE | 2023-07-11 10:05 | P.PNPSI_ITS ---
Subjective Subjective Date of Service: 07/11/23 Reason For Visit: Psychotic Subjective Notes: 3 Day Healthcare Proxy: No Guardianship: No Medical Problems Affecting Mental Status: No Interim History: Isolative, not attending groups, however willing to meet. Articulate, soft spoken, some confusion. Discussed sx over the past few days. Pt reports she believes she does not have an alcohol problem. Reports depression, anxiety. Alcohol is the medicine she uses to relieve sx. Discussed mood sx-reports lability, irritability, days without sleep. Denies family history of bipolar d/o. Has filed a TDN today. Father requested a call. Unfortunately I do not have the correct telephone number and am not able to reach him. Discussed treatment options with pt as well. She is unsure. These past few days have been difficult. Medication Compliance: Yes Side effects from medications: No Attending Groups: No Review of Systems Acute medical concerns: No Medical Review of Systems: unchanged Mental Status Exam Mental Status Exam Patient Appearance: Fatigued Patient Orientation: Person, Place, Time and Situation Level of Consciousness: Alert Patient Behavior: Talkative, Cooperative and Good Eye Contact Mood Description: Withdrawn Affect Description: Withdrawn Patient Cognition Impaired: No Ability to Follow Directions: Fair Speech Pattern: Spontaneous Speech Memory Description: Intact Hallucinations: None Delusions: Not Present Thought Process: Rumination Thought Content: positive for Perseveration Depressive Symptoms: Difficulty Sleeping, Loss of Int. in Activity, Hopelessness, Unhappiness, Increased Fatigue, Low Self Esteem, Loss of Energy and Difficulty Concentrating Judgement: Fair Diagnostics Vital Signs (24Hr): Vital Signs - 24 hr 07/10/23 17:53 07/11/23 09:14 Temperature 97.8 F 97.1 F Pulse Rate 89 88 Respiratory Rate 18 Blood Pressure 113/73 107/73 Pulse Oximetry 100 98 Oxygen Delivery Method Room Air Room Air BMI result Body Mass Index 22.9 Labs 07/07/23 08:00 Imaging Radiology Impressions: ITS Impressions Head CT 07/08/23 13:44 IMPRESSION: Unremarkable exam. Medications Medications Current Medications Acetaminophen (Acetaminophen 325 Mg Tablet) 650 mg PO Q6H PRN PRN Reason: Headache/Pain Mild Scale (1-3) Al Hydroxide/Mg Hydroxide (Magnesium Hydrox/Alum Hydrox 30 Ml Oral.Susp) 30 ml PO Q6H PRN PRN Reason: Heartburn/Nausea Escitalopram Oxalate (Escitalopram Oxalate 10 Mg Tablet) 10 mg PO DAILY [facility] Last Admin: 07/11/23 09:10 Dose: 10 mg Hydroxyzine HCl (Hydroxyzine Hcl 25 Mg Tablet) 25 mg PO Q6H PRN PRN Reason: Anxiety Last Admin: 07/11/23 10:00 Dose: 25 mg Loratadine (Loratadine 10 Mg Tablet) 10 mg PO DAILY [facility] Last Admin: 07/11/23 09:10 Dose: 10 mg Lorazepam (Lorazepam 1 Mg Tablet) 1 mg PO Q4H PRN PRN Reason: CIWA Lorazepam (Lorazepam 1 Mg Tablet) 2 mg PO Q4H PRN PRN Reason: CIWA Lorazepam (Lorazepam 1 Mg Tablet) 3 mg PO Q4H PRN PRN Reason: CIW Magnesium Hydroxide (Milk Of Magnesia 30 Ml Oral.Susp) 30 ml PO DAILY PRN PRN Reason: Constipation Multivitamins/Vitamin C (Multivitamin Tablet) 1 tab PO DAILY [facility] Last Admin: 07/11/23 09:10 Dose: 1 tab Nicotine (Nicotine 14 Mg Patch.Td24) 14 mg TRANSDERMA DAILY [facility] Last Admin: 07/11/23 09:11 Dose: 14 mg Nicotine Polacrilex (Nicotine Polacrilex 2 Mg Gum) 4 mg BUCCAL Q2H PRN PRN Reason: Nicotine Cravings Last Admin: 07/10/23 20:03 Dose: 4 mg Nitrofurantoin Macrocrystals (Nitrofurantoin Monohyd/M-Cryst 100 Mg Capsule) 100 mg PO Q12H [facility] Stop: 07/13/23 21:00 Last Admin: 07/11/23 09:10 Dose: 100 mg Olanzapine (Olanzapine 5 Mg Tablet) 5 mg PO Q4H PRN PRN Reason: Psychosis Last Admin: 07/08/23 12:08 Dose: 5 mg Olanzapine (Olanzapine 7.5 Mg Tablet) 15 mg PO BEDTIME [facility] Last Admin: 07/10/23 20:03 Dose: 15 mg Trazodone HCl (Trazodone Hcl 50 Mg Tablet) 50 mg PO BEDTIME MRX1 PRN PRN Reason: Insomnia Last Admin: 07/10/23 20:39 Dose: 50 mg Allergies Allergies Allergy/AdvReac Type Severity Reaction Status Date / Time No Known Allergies Allergy Verified 03/17/23 17:31 Assessment & Plan Assessment & Plan (1) Bipolar disorder, now depressed: Status: Acute Code(s): F31.30 - Bipolar disorder, current episode depressed, mild or moderate severity, unspecified Assessment and Plan: Continue current plan/regime. Need for family input regarding out pt planning. TDN submitted. (2) Unspecified psychosis: Status: Acute Code(s): F29 - Unspecified psychosis not due to a substance or known physiological condition (3) Alcohol use disorder: Status: Acute Code(s): F10.90 - Alcohol use, unspecified, uncomplicated Assessment and Plan: Continue monitored detox Plan Pt is a 42-year-old female with a PMH significant for?seasonal allergies, schizophrenia, and bipolar disorder who is admitted to psychiatry unit for paranoia and reporting auditory and visual hallucinations. Medical consult for admission H&P. ?Pt has no acute medical complaints at this time. Mood disorder Plan as per Psychiatry Elevated creatinine Creatinine 1.14, up from baseline Encourage p.o. hydration UTI Pt diagnosed with UTI at [facility] Given Macrobid 100mg bid x5 days, started 07/05/2023 Full Code Attending:? DVT Prophylaxis: Lovenox Plan 1. Gather collateral information. 2. We change the Ativan taper as per CIWA protocol. 3. We increased Haldol up to 15 mg p.o. q.h.s. to target psychosis. 4. Continue with regular medications Patient educated on: diagnosis, medication risk/benefits, substance abuse and therapeutic strategies Informed Consent: further education needed Reason for continued inpatient stay Substantial Risk for: rapid decompensation and med/psych decompensation Time Spent With Patient Time: Total time managing care of this patient today ____ minutes.
[2023-07-11] MEDS: Nicotine Polacrilex 2 MG GUM 4 MG BUCCAL (11:24)
--- NOTE | 2023-07-11 14:16 | PC.NURSE ---
Patient signed a three day notice to be up on Saturday 07/14.
[2023-07-11 18:00] VITALS: BP 111/57; PULSE 95; TEMP 35.9; O2SAT 100
[2023-07-11] MEDS: traZODone HCL 50 MG TABLET PO ×2 (20:01→21:08)
[2023-07-11] MEDS: OLANZapine 7.5 MG TABLET 15 MG PO (20:02)
[2023-07-12 06:00] VITALS: BP 110/53; PULSE 66; TEMP 36.4; O2SAT 100
--- NOTE | 2023-07-12 10:14 | HO.PSYCHPN ---
Subjective Subjective Date of Service: 07/12/23 Reason For Visit: Psychotic Subjective Notes: Conditional Voluntary and 3 Day Healthcare Proxy: No Guardianship: No Medical Problems Affecting Mental Status: No Interim History: TDN to 07/13. Pt reports she is improving. Accepting medications, considering programs post discharge if she can use a PT-1 for transport. Call to pts' father as he requested. [phone] who reports he believes pt will not remain sober after discharge. Pt had reported she does not believe drinking to be an issue. Father disagrees, stating family believes it to be the primary issue. Father is aware of pt having a binge pattern, having falls and fainting spells. He is aware of [address] options, yet prefers not to do this. States he has known pt since she was age 8 and he will encourage her to continue treatment upon discharge. Pt reports she has a peer support group on the unit which is a significant comfort for her, although she has not been attending groups. Pt is clear today, will ask Addictions Team to consult for education, recovery focused work Medication Compliance: Yes Side effects from medications: No Attending Groups: No Review of Systems Acute medical concerns: No Medical Review of Systems: unchanged Mental Status Exam Mental Status Exam Patient Appearance: Appropriate Patient Orientation: Person, Place, Time and Situation Level of Consciousness: Alert Patient Behavior: Talkative, Cooperative and Good Eye Contact Mood Description: Withdrawn Affect Description: Withdrawn Patient Cognition Impaired: No Ability to Follow Directions: Fair Speech Pattern: Spontaneous Speech Memory Description: Intact Hallucinations: None Delusions: Not Present Thought Process: Rumination Thought Content: positive for Perseveration Depressive Symptoms: Difficulty Sleeping, Loss of Int. in Activity, Hopelessness, Unhappiness, Increased Fatigue, Low Self Esteem, Loss of Energy and Difficulty Concentrating Judgement: Fair Diagnostics Vital Signs (24Hr): Vital Signs - 24 hr 07/11/23 18:00 07/12/23 06:00 Temperature 96.6 F L 97.6 F Pulse Rate 95 66 Blood Pressure 111/57 L 110/53 L Pulse Oximetry 100 100 Oxygen Delivery Method Room Air Room Air BMI result Body Mass Index 22.9 Labs 07/07/23 08:00 Imaging Radiology Impressions: ITS Impressions Head CT 07/08/23 13:44 IMPRESSION: Unremarkable exam. Medications Medications Current Medications Acetaminophen (Acetaminophen 325 Mg Tablet) 650 mg PO Q6H PRN PRN Reason: Headache/Pain Mild Scale (1-3) Al Hydroxide/Mg Hydroxide (Magnesium Hydrox/Alum Hydrox 30 Ml Oral.Susp) 30 ml PO Q6H PRN PRN Reason: Heartburn/Nausea Escitalopram Oxalate (Escitalopram Oxalate 10 Mg Tablet) 10 mg PO DAILY [facility] Last Admin: 07/11/23 09:10 Dose: 10 mg Ferrous Sulfate (Ferrous Sulfate 324 Mg Tablet.Dr) 325 mg PO DAILY [facility] Hydroxyzine HCl (Hydroxyzine Hcl 25 Mg Tablet) 25 mg PO Q6H PRN PRN Reason: Anxiety Last Admin: 07/11/23 21:08 Dose: 25 mg Loratadine (Loratadine 10 Mg Tablet) 10 mg PO DAILY [facility] Last Admin: 07/11/23 09:10 Dose: 10 mg Lorazepam (Lorazepam 1 Mg Tablet) 1 mg PO Q4H PRN PRN Reason: CIWA Lorazepam (Lorazepam 1 Mg Tablet) 2 mg PO Q4H PRN PRN Reason: CIWA Lorazepam (Lorazepam 1 Mg Tablet) 3 mg PO Q4H PRN PRN Reason: CIW Magnesium Hydroxide (Milk Of Magnesia 30 Ml Oral.Susp) 30 ml PO DAILY PRN PRN Reason: Constipation Multivitamins/Vitamin C (Multivitamin Tablet) 1 tab PO DAILY [facility] Last Admin: 07/11/23 09:10 Dose: 1 tab Nicotine (Nicotine 14 Mg Patch.Td24) 14 mg TRANSDERMA DAILY [facility] Last Admin: 07/11/23 09:11 Dose: 14 mg Nicotine Polacrilex (Nicotine Polacrilex 2 Mg Gum) 4 mg BUCCAL Q2H PRN PRN Reason: Nicotine Cravings Last Admin: 07/11/23 11:24 Dose: 4 mg Nitrofurantoin Macrocrystals (Nitrofurantoin Monohyd/M-Cryst 100 Mg Capsule) 100 mg PO Q12H [facility] Stop: 07/13/23 21:00 Last Admin: 07/11/23 20:02 Dose: 100 mg Olanzapine (Olanzapine 5 Mg Tablet) 5 mg PO Q4H PRN PRN Reason: Psychosis Last Admin: 07/08/23 12:08 Dose: 5 mg Olanzapine (Olanzapine 7.5 Mg Tablet) 15 mg PO BEDTIME [facility] Last Admin: 07/11/23 20:02 Dose: 15 mg Trazodone HCl (Trazodone Hcl 50 Mg Tablet) 50 mg PO BEDTIME MRX1 PRN PRN Reason: Insomnia Last Admin: 07/11/23 21:08 Dose: 50 mg Allergies Allergies Allergy/AdvReac Type Severity Reaction Status Date / Time No Known Allergies Allergy Verified 03/17/23 17:31 Assessment & Plan Assessment & Plan (1) Bipolar disorder, now depressed: Status: Acute Code(s): F31.30 - Bipolar disorder, current episode depressed, mild or moderate severity, unspecified Assessment and Plan: Continue current plan/regime. Need for family input regarding out pt planning. Father is hoping pt will do a program upon discharge. TDN submitted. (2) Unspecified psychosis: Status: Acute Code(s): F29 - Unspecified psychosis not due to a substance or known physiological condition (3) Alcohol use disorder: Status: Acute Code(s): F10.90 - Alcohol use, unspecified, uncomplicated Assessment and Plan: Continue monitored detox Plan Pt is a 42-year-old female with a PMH significant for?seasonal allergies, schizophrenia, and bipolar disorder who is admitted to [facility] psychiatry unit for paranoia and reporting auditory and visual hallucinations. Medical consult for admission H&P. ?Pt has no acute medical complaints at this time. Mood disorder Plan as per Psychiatry Elevated creatinine Creatinine 1.14, up from baseline Encourage p.o. hydration UTI Pt diagnosed with UTI at [facility] Given Macrobid 100mg bid x5 days, started 07/05/2023 Full Code Attending:? DVT Prophylaxis: Lovenox Plan 1. Gather collateral information. 2. We change the Ativan taper as per CIWA protocol. 3. We increased Haldol up to 15 mg p.o. q.h.s. to target psychosis. 4. Continue with regular medications Patient educated on: medication risk/benefits, substance abuse and therapeutic strategies Informed Consent: understands Reason for continued inpatient stay Substantial Risk for: rapid decompensation Time Spent With Patient Time: Total time managing care of this patient today ____ minutes.
[2023-07-12] MEDS: Nitrofurantoin Monohyd/M-Cryst 100 MG CAPSULE PO ×2 (10:28→20:07)
[2023-07-12] MEDS: Nicotine 14 MG PATCH.TD24 TRANSDERMA (10:29)
[2023-07-12] MEDS: Nicotine Polacrilex 2 MG GUM 4 MG BUCCAL ×2 (10:29→16:24)
[2023-07-12] MEDS: Ferrous Sulfate 324 MG TABLET.DR 325 MG PO (10:29)
[2023-07-12] MEDS: Multivitamin TABLET 1 TAB PO (10:29)
[2023-07-12] MEDS: Loratadine 10 MG TABLET PO (10:30)
[2023-07-12] MEDS: Escitalopram Oxalate 10 MG TABLET PO (10:30)
--- NOTE | 2023-07-12 14:31 | MHC.RECOVRN ---
Attempt made to speak with pt, unable to make contact at this time, pt on phone. Will re-attempt at a later time.
[2023-07-12 18:50] VITALS: BP 125/66; PULSE 86; TEMP 36.3
[2023-07-12] MEDS: hydrOXYzine HCL 25 MG TABLET PO (20:07)
[2023-07-12] MEDS: traZODone HCL 50 MG TABLET PO ×2 (20:07→21:20)
[2023-07-12] MEDS: OLANZapine 7.5 MG TABLET 15 MG PO (20:08)
[2023-07-13 06:00] VITALS: BP 116/62; PULSE 64; RESP 16; TEMP 35.7; O2SAT 100
[2023-07-13] MEDS: Nitrofurantoin Monohyd/M-Cryst 100 MG CAPSULE PO ×2 (08:30→20:04)
[2023-07-13] MEDS: Escitalopram Oxalate 10 MG TABLET PO (08:31)
[2023-07-13] MEDS: Loratadine 10 MG TABLET PO (08:31)
[2023-07-13] MEDS: Ferrous Sulfate 324 MG TABLET.DR 325 MG PO (08:31)
[2023-07-13] MEDS: Multivitamin TABLET 1 TAB PO (08:31)
[2023-07-13] MEDS: Nicotine 14 MG PATCH.TD24 TRANSDERMA (08:32)
[2023-07-13] MEDS: Nicotine Polacrilex 2 MG GUM 4 MG BUCCAL ×3 (09:16→18:36)
--- NOTE | 2023-07-13 10:12 | HO.PSYCHPN ---
Subjective Subjective Date of Service: 07/13/23 Reason For Visit: Psychotic Subjective Notes: Conditional Voluntary and 3 Day (07/14/23) Healthcare Proxy: No Guardianship: No Medical Problems Affecting Mental Status: No Interim History: TDN to 07/14/23. Plans to attend her alevism upon discharge, it will be a supportive and healthy transition for me. Discussed medications. Pt willing to trial AA, NA, psychotherapy, psychophamacology and recovery coaching. Medication Compliance: Yes Side effects from medications: No Attending Groups: Intermittent Review of Systems Acute medical concerns: No Medical Review of Systems: unchanged Mental Status Exam Mental Status Exam Patient Appearance: Appropriate Patient Orientation: Person, Place, Time and Situation Level of Consciousness: Alert Patient Behavior: Talkative, Cooperative and Good Eye Contact Mood Description: Withdrawn Affect Description: Withdrawn Patient Cognition Impaired: No Ability to Follow Directions: Fair Speech Pattern: Spontaneous Speech Memory Description: Intact Hallucinations: None Delusions: Not Present Thought Process: Rumination Thought Content: positive for Perseveration Depressive Symptoms: Difficulty Sleeping, Loss of Int. in Activity, Hopelessness, Unhappiness, Increased Fatigue, Low Self Esteem, Loss of Energy and Difficulty Concentrating Judgement: Fair Diagnostics Vital Signs (24Hr): Vital Signs - 24 hr 07/12/23 18:50 07/13/23 06:00 Temperature 97.3 F 96.2 F L Pulse Rate 86 64 Respiratory Rate 16 Blood Pressure 125/66 116/62 Pulse Oximetry 100 Oxygen Delivery Method Room Air BMI result Body Mass Index 22.9 Labs 07/07/23 08:00 Imaging Radiology Impressions: ITS Impressions Head CT 07/08/23 13:44 IMPRESSION: Unremarkable exam. Medications Medications Current Medications Acetaminophen (Acetaminophen 325 Mg Tablet) 650 mg PO Q6H PRN PRN Reason: Headache/Pain Mild Scale (1-3) Al Hydroxide/Mg Hydroxide (Magnesium Hydrox/Alum Hydrox 30 Ml Oral.Susp) 30 ml PO Q6H PRN PRN Reason: Heartburn/Nausea Escitalopram Oxalate (Escitalopram Oxalate 10 Mg Tablet) 10 mg PO DAILY [facility] Last Admin: 07/13/23 08:31 Dose: 10 mg Ferrous Sulfate (Ferrous Sulfate 324 Mg Tablet.Dr) 325 mg PO DAILY [facility] Last Admin: 07/13/23 08:31 Dose: 324 mg Hydroxyzine HCl (Hydroxyzine Hcl 25 Mg Tablet) 25 mg PO Q6H PRN PRN Reason: Anxiety Last Admin: 07/12/23 20:07 Dose: 25 mg Loratadine (Loratadine 10 Mg Tablet) 10 mg PO DAILY [facility] Last Admin: 07/13/23 08:31 Dose: 10 mg Lorazepam (Lorazepam 1 Mg Tablet) 1 mg PO Q4H PRN PRN Reason: CIWA Lorazepam (Lorazepam 1 Mg Tablet) 2 mg PO Q4H PRN PRN Reason: CIWA Lorazepam (Lorazepam 1 Mg Tablet) 3 mg PO Q4H PRN PRN Reason: CIW Magnesium Hydroxide (Milk Of Magnesia 30 Ml Oral.Susp) 30 ml PO DAILY PRN PRN Reason: Constipation Multivitamins/Vitamin C (Multivitamin Tablet) 1 tab PO DAILY [facility] Last Admin: 07/13/23 08:31 Dose: 1 tab Nicotine (Nicotine 14 Mg Patch.Td24) 14 mg TRANSDERMA DAILY [facility] Last Admin: 07/13/23 08:32 Dose: 14 mg Nicotine Polacrilex (Nicotine Polacrilex 2 Mg Gum) 4 mg BUCCAL Q2H PRN PRN Reason: Nicotine Cravings Last Admin: 07/13/23 09:16 Dose: 4 mg Nitrofurantoin Macrocrystals (Nitrofurantoin Monohyd/M-Cryst 100 Mg Capsule) 100 mg PO Q12H [facility] Stop: 07/13/23 21:00 Last Admin: 07/13/23 08:30 Dose: 100 mg Olanzapine (Olanzapine 5 Mg Tablet) 5 mg PO Q4H PRN PRN Reason: Psychosis Last Admin: 07/08/23 12:08 Dose: 5 mg Olanzapine (Olanzapine 7.5 Mg Tablet) 15 mg PO BEDTIME [facility] Last Admin: 07/12/23 20:08 Dose: 15 mg Trazodone HCl (Trazodone Hcl 50 Mg Tablet) 50 mg PO BEDTIME MRX1 PRN PRN Reason: Insomnia Last Admin: 07/12/23 21:20 Dose: 50 mg Allergies Allergies Allergy/AdvReac Type Severity Reaction Status Date / Time No Known Allergies Allergy Verified 03/17/23 17:31 Assessment & Plan Assessment & Plan (1) Bipolar disorder, now depressed: Status: Acute Code(s): F31.30 - Bipolar disorder, current episode depressed, mild or moderate severity, unspecified Assessment and Plan: Continue current plan/regime. TDN- Pt will discharge 07/14/23. (2) Unspecified psychosis: Status: Acute Code(s): F29 - Unspecified psychosis not due to a substance or known physiological condition (3) Alcohol use disorder: Status: Acute Code(s): F10.90 - Alcohol use, unspecified, uncomplicated Assessment and Plan: Continue monitored detox Plan Pt is a 42-year-old female with a PMH significant for?seasonal allergies, schizophrenia, and bipolar disorder who is admitted to psychiatry unit for paranoia and reporting auditory and visual hallucinations. Medical consult for admission H&P. ?Pt has no acute medical complaints at this time. Mood disorder Plan as per Psychiatry Elevated creatinine Creatinine 1.14, up from baseline Encourage p.o. hydration UTI Pt diagnosed with UTI at [facility] Given Macrobid 100mg bid x5 days, started 07/05/2023 Full Code Attending:Marcial DVT Prophylaxis: Lovenox Plan 1. Gather collateral information. 2. We change the Ativan taper as per CIWA protocol. 3. We increased Haldol up to 15 mg p.o. q.h.s. to target psychosis. 4. Continue with regular medications Informed Consent: understands Reason for continued inpatient stay Substantial Risk for: med/psych decompensation Time Spent With Patient Time: Total time managing care of this patient today ____ minutes.
--- NOTE | 2023-07-13 11:28 | MHC.RECOVRN ---
In to speak with pt regarding ETOH use, pt reports that AA and IOP has been recommended to her but she is desiring to start with connecting with an outpatient therapist. States she has huge support from her mule packer. Pt denies daily ETOH use, states she can go for weeks and months without drinking, but when I drink, I DRINK . Reports she will drink a sleeve of E&J when she is bingeing. Denies utilizing [facility] in the past. Recovery supports reviewed with pt including resource recovery specialist and [facility]. Pt verbalized understanding. Plan to provide with folder of resources.
[2023-07-13 19:26] VITALS: BP 121/76; PULSE 102; RESP 18; TEMP 36.1; O2SAT 99
[2023-07-13] MEDS: traZODone HCL 50 MG TABLET PO ×2 (20:04→21:08)
[2023-07-13] MEDS: OLANZapine 7.5 MG TABLET 15 MG PO (20:04)
[2023-07-13] MEDS: hydrOXYzine HCL 25 MG TABLET PO (21:08)
[2023-07-14 06:00] VITALS: BP 116/64; PULSE 62; RESP 16; TEMP 36.6; O2SAT 98
[2023-07-14] MEDS: Escitalopram Oxalate 10 MG TABLET PO (08:11)
[2023-07-14] MEDS: Multivitamin TABLET 1 TAB PO (08:11)
[2023-07-14] MEDS: Loratadine 10 MG TABLET PO (08:11)
[2023-07-14] MEDS: Nicotine 14 MG PATCH.TD24 TRANSDERMA (08:11)
[2023-07-14] MEDS: Ferrous Sulfate 324 MG TABLET.DR PO (08:36)
--- NOTE | 2023-07-14 09:01 | PM.PSYDC ---
DS: Providers Provider Date of Service: 07/14/23 Date of admission: 07/06/23 19:03 Date of discharge: 07/14/23 Primary care physician: Unknown Physician Admitting clinician: Dianne Phelan Attending physician on admission: Joshua Diaz Consults: 07/06/23 20:00 Consult to Hospitalist Routine Comment: Consulting Provider: Hospitalist Reason For Exam: medical H&P 07/12/23 13:50 Addiction Medicine Routine Consulting Provider: Addiction Covering Reason for consultation: alcohol use disorder Has provider been notified: No Attending physician on discharge: Joshua Diaz Discharging clinician: Dianne Phelan DS: Diagnosis Discharge Diagnosis (1) Bipolar disorder, now depressed: Status: Acute (2) Unspecified psychosis: Status: Acute (3) Alcohol use disorder: Status: Acute DS: Medications Discharge Medications Home Medications: Previous Rx's Medication Instructions Recorded escitalopram oxalate 10 mg tablet 10 mg PO DAILY #30 tabs 07/13/23 escitalopram oxalate 10 mg tablet 10 mg PO DAILY #30 tabs 07/13/23 ferrous sulfate 324 mg (65 mg 325 mg PO DAILY #30 tabs 07/13/23 iron) tablet,delayed release loratadine 10 mg tablet 10 mg PO DAILY #30 tabs 07/13/23 multivitamin 1 tab PO DAILY #30 tabs 07/13/23 nicotine (polacrilex) 2 mg buccal 2 mg buccal Q2H PRN smoking 07/13/23 lozenge cravings 30 days #72 ea nicotine 7 mg/24 hr daily 7 mg transdermal DAILY 28 days #28 07/13/23 transdermal patch ea olanzapine 15 mg tablet (Zyprexa) 15 mg PO BEDTIME #30 tabs 07/13/23 trazodone 50 mg tablet 50 mg PO BEDTIME PRN insomnia #3 07/13/23 tabs Mental Status Exam Mental Status Exam Patient Appearance: Appropriate Patient Orientation: Person, Place, Time and Situation Level of Consciousness: Alert Patient Behavior: Talkative, Cooperative and Good Eye Contact Mood Description: Withdrawn Affect Description: Withdrawn Patient Cognition Impaired: No Ability to Follow Directions: Fair Speech Pattern: Spontaneous Speech Memory Description: Intact Hallucinations: None Delusions: Not Present Thought Process: Rumination Thought Content: positive for Perseveration Depressive Symptoms: Difficulty Sleeping, Loss of Int. in Activity, Hopelessness, Unhappiness, Increased Fatigue, Low Self Esteem, Loss of Energy and Difficulty Concentrating Judgement: Fair Data Data Completed and Pending Completed studies during hospitalization [Text1]: 07/07/23 07/07/23 07/08/23 08:00 08:00 08:05 Iron 24 L TIBC 357 % Saturation 7 L Unsat Iron Binding 333 Ammonia Vitamin B12 786 Folate 8.5 TSH 2.01 07/08/23 Unknown Iron TIBC % Saturation Unsat Iron Binding Ammonia 25 Vitamin B12 Folate TSH Imaging Diagnostic Imaging Impressions Head CT 07/08/23 13:44 IMPRESSION: Unremarkable exam. DS: Summary Hospital Course Hospital Course: Admission to adult psychiatry for exacerbation of alcohol use disorder with hallucinosis and bipolar disorder with psychosis. Pt experienced a difficult detox with perceptual alterations, acute psychosis and responded to Olanzapine in addition to Lorazepam. She was found to have a mild anemia and UTI which were addressed. When cleared she was reluctant to agree to treatment, however did accept out patient appointments with [facility]. Time spent discussing smoking cessation with patient: 3 to 10 minutes Status at Discharge Functional status at discharge: independent ambulation Overall status at discharge: patient is progressing back to baseline Time Spent with Patient Time attestation: Total time managing care of this patient today ____ minutes. Time spent: Greater than 30 minutes Discharge Plan Discharge Anticipated Discharge Date/Time: 07/14/23 11:00 Patient Disposition: Home, Self-Care Discharge Diagnosis: Alcohol Use Disorder Alcohol Hallucinosis Bipolar Disorder, Depressed with Psychosis Referrals: [facility] Intake [Other] - 07/19/23 12:00 pm [facility] [Other] - 08/10/23 10:00 am (Telehealth) [facility] [Other] - 09/11/23 10:00 am (Telehealth) Physician,Unknown J [Primary Care Provider] - 1 Week Discharge Medications: New ferrous sulfate 324 mg (65 mg iron) Tablet,Delayed Release (Dr/Ec) 325 mg PO DAILY Qty: 30 0RF escitalopram oxalate 10 mg Tablet 10 mg PO DAILY Qty: 30 0RF olanzapine [Zyprexa] 15 mg tablet 15 mg PO BEDTIME Qty: 30 0RF Continued multivitamin Tablet 1 tab PO DAILY Qty: 30 0RF Patient Comments: LAST FILLED 03/22/23 trazodone 50 mg tablet 50 mg PO BEDTIME PRN (Reason: insomnia) Qty: 3 0RF Patient Comments: LAST FILLED 07/05/23 loratadine 10 mg tablet 10 mg PO DAILY Qty: 30 0RF nicotine 7 mg/24 hr Patch 24 Hour 7 mg transdermal DAILY 28 Days Qty: 28 0RF escitalopram oxalate 10 mg tablet 10 mg PO DAILY Qty: 30 0RF nicotine (polacrilex) 2 mg Lozenge 2 mg buccal Q2H PRN (Reason: smoking cravings) 30 Days Qty: 72 0RF Discontinued aripiprazole 2 mg tablet 2 mg PO DAILY nitrofurantoin macrocrystal tablet 100 mg PO BID Discharge Orders: Discharge Order (Routine); Ordered 07/14/23 Ordered By: Dianne Phelan Diet: Advance to usual diet Activity on Discharge: As tolerated Stand Alone Forms: Patient Portal Discharge page, Community Support Care Plan Goals: Sobriety Mood and behavioral stabilization Health Concerns: Sobriety Mood and behavioral stabilization Plan of Treatment: Attend scheduled appointments Take medications as directed Assessment: Pt interviewed prior to discharge and found to be fully oriented and without SI/HI. Pt has insight and demonstrates good judgment in terms of wanting to pursue treatment. Pt is not in imminent risk of harm to self or others and has a safety plan that includes presenting to the closest ER or calling 911 if feeling unsafe Pt has been observed closely by nursing and unit staff throughout admission Pt has not engaged in any behaviors that suggest dangerousness to self or others and has demonstrated appropriate behaviors and impulse control. Discharge Date/Time: 07/14/23 11:00
[2023-07-14] MEDS: Nicotine Polacrilex 2 MG GUM 4 MG BUCCAL (10:31)
== END 2023-07-14 11:00 | disposition home or self-care (01) | DRG 885 ==
PROVIDERS: Social Worker; Admitting Provider Psychiatry & Neurology Psychiatry; Visit Provider Clinical Nurse Specialist Psychiatric/Mental Health, Adult
DX: F31.5 Bipolar disorder, current episode depressed, severe, with psychotic features (principal); N39.0 Urinary tract infection, site not specified; F17.210 Nicotine dependence, cigarettes, uncomplicated; F10.10 Alcohol abuse, uncomplicated; Z71.6 Tobacco abuse counseling; Z79.899 Other long term (current) drug therapy
CPT/HCPCS: 36415; 70450; 80053; 80061; 82140; 82607; 82746; 83036; 83540; 84443

== ENCOUNTER → 2023-07-06 19:03 | Outpatient (BNV) | payer MEDICARE, MEDICAID, SELFPAY | PROVIDERS: Admitting Provider Psychiatry & Neurology Psychiatry; Visit Provider Psychiatry & Neurology Psychiatry | DX: F31.30 Bipolar disorder, current episode depressed, mild or moderate severity, unspecified (principal); F29 Unspecified psychosis not due to a substance or known physiological condition; F10.90 Alcohol use, unspecified, uncomplicated | CPT/HCPCS: 90792; 99231; 99232; 99239 ==

== ENCOUNTER → 2023-07-06 19:03 | Outpatient (BNV) | payer MEDICARE, MEDICAID, SELFPAY | PROVIDERS: Admitting Provider Psychiatry & Neurology Psychiatry; Visit Provider Student in an Organized Health Care Education/Training Program | DX: Z02.2 Encounter for examination for admission to residential institution (principal) | CPT/HCPCS: 99429 ==